=== PATIENT | female | born 1985 | race Caucasian/White ===

== ENCOUNTER 2019-03-08 23:36 | Outpatient (CLI) | payer BC ==
[~2019-03-08] VITALS: Ht 167.6 cm; Wt 88.6 kg
[2019-03-08 23:43] VITALS: Ht 167.6 cm; Wt 88.6 kg
--- NOTE | 2019-03-09 01:21 | PN ---
Triage Information Date/Time Reason for visit: Uterine contractions Weeks of Gestation 34-year-old 5 para 1 at 39 weeks and 6 days of gestation with estimated date of delivery of March 10, 2019 Patient presents with chief complaint of uterine contractions She reports positive movement, denies vaginal bleeding or leaking fluid She is scheduled for induction tomorrow /Para 5 para 1 Diabetes: none Hypertention: none Objective Heart Rate: 140's Heart Rate Comments heart rate tracing category 1 Contractions: >10 Minutes Apart Exam Cervix closed/posterior per nurse Disposition: Discharge Assessment/Plan kick count instructions were given Labor precautions were given Patient to return tomorrow for induction of labor JESSE HERRERA MD Mar 09, 2019 01:21
--- NOTE | 2019-03-09 03:22 | TRIAGE ---
OB Triage Datetime Report Generated by CPN: 03/09/2019 03:22 Datetime: 03/09/2019 00:45 Stage of : OB Triage Labor Evaluation Frequency: 6-8 Monitor Mode: External Duration (sec)2399: 50-80 Quality: Mild Pattern: Normal: <= 5 Contractions in 10 Minutes Resting Tone [place]: Relaxed Heart Rate FHR Baseline Rate: 125 Monitor Mode: External US Variability: Moderate 6-25 bpm Accelerations: 15X15 Decelerations: None Category: Category I Pain Assessment Pain Scale: 3 Pain Presence: Intermittent Pain Type: Cramping Pain Location: Abdomen Pain Goal: 3 Pain Relief Measures: Comfort Measures Datetime: 03/08/2019 23:47 Time of Arrival: 03/08/2019 23:24 EGA: 39.5 Arrived By: Wheelchair Arrived From: Home Chief Complaint: CONTRACTIONS SINCE 2229, UNSURE SROM, SPOTTING Movement: Present Contractions: Irregular Time Contractions Began: 03/08/2019 22:30 Rupture of Membranes: Unsure Vaginal Bleeding: None Vaginal Discharge: Denies Patient Complaints: None Time Provider Notified: 03/09/2019 00:45 Provider Notified: REICHE Initial Plan: EFM, ASSESSMENT, CALL MD FOR ORDERS Datetime: 03/08/2019 23:45 Assessment Type: Triage Maternal Assessment Level of Consciousness: Keenly Alert, Responsive DTR's/Clonus: DTRs 2+; No Clonus Headache: Denies Blurred Vision: No Respiratory Effort: Unlabored; Regular Rhythm; Equal Expansion Breath Sounds, Left: Clear and Equal Breath Sounds, Right: Clear and Equal Nausea/Vomiting: Denies RUQ Epigastric Pain: Denies Lower Extremities Edema: None Upper Extremities Edema: None Facial Edema: None Fall Risk Assessment History of Falling: (0) No Secondary Diagnosis: (0) No Ambulatory Aid: (0) Bedrest/Nurse Assist IV Therapy: (0) No Gait: (0) Normal/Bedrest/Immobile Mental Status: (0) Oriented to Own Ability Fall Score: 0 Fall Risk Score Definition: No Risk: No action required
== END 2019-03-09 00:55 | disposition home or self-care (01) ==
LOC: OBT 23:36 → L-D 23:37 → OBT 03-09 00:55
PROVIDERS: ATTEND Obstetrics & Gynecology
DX: O62.9 Abnormality of forces of labor, unspecified (principal); Z3A.39 39 weeks gestation of pregnancy
CPT/HCPCS: G0463

== ENCOUNTER 2019-03-09 14:46 | Inpatient (IN) | payer BC ==
[~2019-03-09] VITALS: Ht 168.9 cm; Wt 88.2 kg
[2019-03-09] MEDS ORDERED: LACTATED RINGER'S 1,000 ML IV PRN (15:19)
[2019-03-09] MEDS ORDERED: LACTATED RINGER'S 1,000 ML IV SCH (15:19)
[2019-03-09] MEDS ORDERED: MINERAL OIL LIGHT 10 ML VIAL TOP PRN (15:30)
[2019-03-09] MEDS ORDERED: OXYTOCIN 30 UNITS/LR 500 ML IV SCH ×3 (15:30→21:00)
[2019-03-09] MEDS ORDERED: CARBOPROST 250 MCG INJ IM PRN (15:30)
[2019-03-09] MEDS ORDERED: METHYLERGONOVINE 0.2 MG INJ IM PRN (15:30)
[2019-03-09] MEDS ORDERED: LIDOCAINE 1% (MPF) 30 ML INJ INJ PRN (15:30)
[2019-03-09] MEDS ORDERED: BUTORPHANOL 2 MG INJ IV PRN ×2 (15:30)
[2019-03-09] MEDS ORDERED: OXYCODONE/ASPIRIN (4.88/325) TAB PO PRN (15:30)
[2019-03-09] MEDS ORDERED: IBUPROFEN 600 MG TAB PO PRN (15:30)
[2019-03-09] MEDS ORDERED: MISOPROSTOL 200 MCG TAB PR PRN (15:30)
[2019-03-09] MEDS ORDERED: OXYTOCIN 30 UNITS/LR 500 ML IV PRN (15:30)
--- NOTE | 2019-03-09 16:14 | PREAC ---
Date/Time of Note Date/Time of Note DATE: 03/09/19 TIME: 16:13 Anesthesia Eval and Record Evaluation Time Pre-Procedure Interview DATE: 03/09/19 TIME: 16:13 Age 34 Sex female NPO: 8 hrs Preoperative diagnosis iup at 40 weeks Planned procedure labor epidural Past Medical History Past Medical History: None Surgery & Anesthesia Issues No known issue Meds Anticoagulation: No Beta Sarai within 24 hr: No Reason Beta Sarai not given: Pt. not on B-Sarai No Active Prescriptions or Reported Meds Current Medications Lactated Ringer's 1,000 ml @ 125 mls/hr Q8H IV ; Start 03/09/19 at 15:19 Butorphanol Tartrate (Stadol) 1 mg Q2H PRN IV .PAIN SCALE 1-5; Start 03/09/19 at 15:30 Butorphanol Tartrate (Stadol) 2 mg Q2H PRN IV .PAIN SCALE 6-10; Start 03/09/19 at 15:30 Lidocaine (Xylocaine 1% (Mpf)) 30 ml ONCE PRN INJ .EPISIOTOMY; Start 03/09/19 at 15:30 Oxytocin/Lactated Ringer's 500 ml @ 500 mls/hr ONCE POST IV ; Start 03/09/19 at 15:30 Oxytocin/Lactated Ringer's 500 ml @ 125 mls/hr POST IV ; Start 03/09/19 at 15:30 Ibuprofen (Motrin) 600 mg ONCE PRN PO .PAIN 1-5; Start 03/09/19 at 15:30 Oxycodone/Aspirin (Percodan) 2 tab ONCE PRN PO .PAIN 6-10; Start 03/09/19 at 15:30 Lactated Ringer's 1,000 ml @ 2,000 mls/hr Q30M PRN IV .ANESTHESIA; Start 03/09/19 at 15:19 Oxytocin/Lactated Ringer's 500 ml @ 0 mls/hr ONCE PRN IV .VAGINAL BLEEDING; Start 03/09/19 at 15:30 Methylergonovine Maleate (Methergine) 0.2 mg ONCE PRN IM .VAGINAL BLEEDING; S tart 03/09/19 at 15:30 Carboprost Tromethamine (Hemabate) 250 mcg ONCE PRN IM .VAGINAL BLEEDING; Start 03/09/19 at 15:30 Misoprostol (Cytotec) 1,000 mcg ONCE PRN AL .VAGINAL BLEEDING; Start 03/09/19 at 15:30 Mineral Oil (Muri-Lube) 30 ml ONCE PRN TOP DELIVERY; Start 03/09/19 at 15:30; Stop 03/09/19 at 23:00 Meds reviewed: Yes Allergies Coded Allergies: No Known Allergy (Unverified , 03/08/19) Allergies Reviewed: Yes Labs/Studies Labs Reviewed: Reviewed by anesthesiologist Result Diagram: 03/09/19 1515 Laboratory Tests 03/09/19 15:15 Blood Bank Test 03/09/19 15:15 Blood Type O POSITIVE Rh Immune Globulin Candidate NO test: Positive Pre-procedure Exam Airway: Adequate mouth opening, Adequate thyromental dist Mallampati: Mallampati II Teeth: Normal Lung: Normal Heart: Normal ASA Physical Status ASA physical status: 2 Emergency: None Planned Anesthetic Neuraxial: Epidural Planned Pain Management Parenteral pain med Pre-operative Attestations Prior to commencing anesthesia and surgery, the patient was re-evaluated, there was verification of: *The patient's identity *The results of appropriate recent lab work and preoperative vital signs *The above evaluation not changing prior to induction *Anesthetic plan, risk benefits, alternative and complications discussed with patient/family; questions answered; patient/family understands, accepts and wishes to proceed. CARLOS SCHWAB Mar 09, 2019 16:14
[2019-03-09] MEDS ORDERED: FENTAnyl 2MCG/ML-ROPIV 0.2% 100 ML ONE (16:16)
[2019-03-09] MEDS ORDERED: NALOXONE (0.4 MG/ML) INJ IV PRN (16:30)
[2019-03-09] MEDS ORDERED: DIPHENHYDRAMINE 50 MG INJ IV PRN (16:30)
[2019-03-09] MEDS ORDERED: ONDANSETRON 4 MG INJ IV PRN (16:30)
[2019-03-09] MEDS ORDERED: FENTAnyl 2MCG/ML-ROPIV 0.2% 100 ML BAG EPI SCH (16:30)
--- NOTE | 2019-03-09 22:08 | PAC ---
Date/Time of Note Date/Time of Note DATE: 03/09/19 TIME: 22:08 Post-Anesthesia Notes Post-Anesthesia Note Last documented vital signs 117/78 78 16 98% sat temp 98.3 Activity: WNL Respiratory function: WNL Cardiovascular function: WNL Mental status: Baseline Pain reasonably controlled: Yes Hydration appropriate: Yes Nausea/Vomiting absent: Yes CARLOS SCHWAB Mar 09, 2019 22:08
[2019-03-10] MEDS ORDERED: OXYTOCIN 30 UNITS/LR 500 ML IV SCH (01:39)
[2019-03-10] MEDS: LACTATED RINGER'S 1,000 ML IV* SCH ×2 (01:39→08:51)
--- NOTE | 2019-03-10 01:45 | LDN ---
Date/Time of Note Date/Time of Note DATE: 03/10/19 TIME: 01:43 Delivery Summary of a viable baby boy weighing 7# 2 oz, 19.5" long, and with Apgars of 8/9. Weeks of Gestation 40w Placenta Delivered: Spontaneously Meconium: none Episiotomy: No Perineal laceration: 0 Laceration repair: Small 1st degree right labial laceration repaired with 3-0 chromic. Anesthesia type: Epidural Estimated blood loss: 200 Sponge & Needle done & correct: Yes All needle counts correct: Yes Any foreign bodies felt in the: No (vagina) Infant Delivery Information Sex Infant Sex: male Apgars 1 Minute: 8 5 Minute: 9 Suctioning Nose & mouth suctioned at tyler: Yes Delee suction performed: No Umbilical Cord Umbilical cord with: 3 Vessels Cord presentations: no nuchal cord Cord Blood was obtained: Yes Mother & Baby Disposition Disposition Mom & Baby to Maternity; Good: Yes Baby to NICU: No NEEL MCDONALD MD Mar 10, 2019 01:44
--- NOTE | 2019-03-10 01:48 | HP ---
Date/Time of Note Date/Time of Note DATE: 03/10/19 TIME: 01:45 OB - History Hx of Present Free Text/Dictation 34 y.o. A3 with an IUP at 39w 6d came in with spontaneous rupture of membranes and in labor. Initial exam was 30% 2 cm/-2. Of note this is a surrogate . Estimated Due Date: Mar 10, 2019 : 5 Para: 1 Therapeutic : 3 Care: Good Care Ultrasounds: Normal mid trimester US Obstetrical Complications: None Medical Complications: None Past Family/Social History * Past Medical, Surgical, Family and Obstetric Histories reviewed from chart. Blood Type: O+ Rubella: immune RPR/VDRL: Negative GBS Status: Negative HBsAG: Negative OB Admission Exam Vital Signs Vital Signs 113/63 Physical Exam HEENT: WNL Heart: Rhythm Normal Lungs: Clear Abdomen: WNL Extremities: Normal Reflexes: Normal Cervical Dilatation: 2cm Effacement: 25% Station: -2 Membranes: Ruptured Amniotic Fluid: Clear Heart Rate: 120's Accelerations: Accelerations Present Decelerations: No Decelerations Varibility: Moderate Contractions on Admission: 6-10 Minutes Apart Intensity: Moderate Last 72 hours Lab Results CBC & BMP 03/09/19 15:15 OB Assessment/Plan Reason for admission: active labor, rupture of membranes Plan: Expectant Management Other plan: Augmentation prn. NEEL MCDONALD MD Mar 10, 2019 01:48
[2019-03-10] MEDS ORDERED: OXYTOCIN 30 UNITS/LR 500 ML IV PRN (02:00)
[2019-03-10] MEDS ORDERED: METHYLERGONOVINE 0.2 MG INJ IM PRN (02:00)
[2019-03-10] MEDS ORDERED: CARBOPROST 250 MCG INJ IM PRN (02:00)
[2019-03-10] MEDS ORDERED: BENZOCAINE 20% 56 ML SPRAY TOP PRN (02:00)
[2019-03-10] MEDS ORDERED: LANOLIN HPA 1 PKT TOP PRN (02:00)
[2019-03-10] MEDS ORDERED: MISOPROSTOL 200 MCG TAB PR PRN (02:00)
[2019-03-10 02:40] VITALS: BP 125/60; PULSE 109; RESP 18
[2019-03-10] MEDS: HYDROCODONE/APAP (5/325) TAB PO PRN ×3 (03:48→18:17)
[2019-03-10] MEDS: IBUPROFEN 600 MG TAB PO SCH ×3 (06:30→18:14)
[2019-03-10 09:30] VITALS: BP 109/59; PULSE 67; RESP 16
[2019-03-10 12:00] VITALS: BP 115/63; PULSE 70; RESP 16
[2019-03-10 15:50] VITALS: BP 108/65; PULSE 89; RESP 16
[2019-03-10 20:45] VITALS: BP 105/59; PULSE 104; RESP 20
--- NOTE | 2019-03-10 21:27 | QN ---
Documentation Comment PPD #1 Pt is doing well and is just asking for a sleep aid for tonight. There has been lots of drama re: the actual parents and the lack of proper documents for d/c and extreme erratic behavior of the mother. assessment services manager has been involved due to the surrogacy situation. Pt signed the release papers but apparently the certificate cannot be completed yet. The social media community manager most familiar with these situations will be here tomorrow. T-97.7 BP 108/65 Abdomen soft, NT. Lochia minimal Ext NT, no edema. WBC 23.6 Hgb 10.2 P: Will repeat the CBC in the AM. Hopefully the paperwork can be completed in the AM and the pt can be d/c'ed. NEEL MCDONALD MD Mar 10, 2019 21:27
[2019-03-10] MEDS ORDERED: ZOLPIDEM 5 MG TAB PO PRN (21:30)
[2019-03-11] MEDS: HYDROCODONE/APAP (5/325) TAB PO PRN ×2 (00:16→14:17)
[2019-03-11] MEDS: IBUPROFEN 600 MG TAB PO SCH ×3 (00:16→14:17)
[2019-03-11 00:18] VITALS: BP 116/66; PULSE 92; RESP 20
--- NOTE | 2019-03-11 02:24 | DELSUM ---
Delivery Summary A-C Datetime Report Generated by CPN: 03/11/2019 02:23 DELIVERY PERSONNEL Quantitative Associate: DEDRA, SIVKAUMAR MATERNAL INFORMATION Delivery Anesthesia: Epidural Medications in Delivery: 30 UNITS PITOCIN IN 500ML LR Delivery QBL (ml): 200 Placenta Cultured: No Maternal Complications: None LABOR SUMMARY EDC: 03/10/2019 00:00 No. Babies in Womb: 1 Attempted: No Labor Anesthesia: Epidural LABOR INFORMATION Reason for Induction: Not Applicable Onset of Labor: 03/09/2019 14:00 Complete Dilatation: 03/10/2019 23:58 Group B Beta Strep: Negative Antibiotics # of Doses: 0 Steroids Given: None Reason Steroids Not Administered: Not Applicable MEMBRANES Membranes Rupture Method: Spontaneous Rupture of Membranes: 03/09/2019 14:00 Length of Rupture (hr): 10.93 Amniotic Fluid Color: Clear Amniotic Fluid Amount: Small Amniotic Fluid Odor: None STAGES OF LABOR Stage 1 hr: 33 Stage 1 min: 58 Stage 2 hr: -23 Stage 2 min: -2 Stage 3 hr: 0 Stage 3 min: 9 Total Time in Labor hr: 11 Total Time in Labor min: 5 VAGINAL DELIVERY Episiotomy: None Laceration Extension: First Degree Other Laceration: Labial Laceration Repair: Yes Initial Vag Sponge Count: 10 Final Vag Sponge Count: 10 Initial Vag Sharps Count: 1 Final Vag Sharps Count: 2 Sponge Count Correct: Yes; Vaginal Sweep Performed Sharps Count Correct: Yes BABY A INFORMATION Delivery Date/Time: 03/10/2019 00:56 Method of Delivery: Vaginal Born in Route : No : N/A Forceps: N/A Vacuum Extraction: N/A Shoulder Dystocia : No SHOULDER DYSTOCIA BABY A Infant Delivery Date/Time: 03/10/2019 00:56 PRESENTATION/POSITION BABY A Presentation: Cephalic Cephalic Presentation: Vertex Vertex Position: Left Occipital Anterior Breech Presentation: N/A PLACENTA INFORMATION BABY A Placenta Delivery Time : 03/10/2019 01:05 Placenta Method of Delivery: Spontaneous Placenta Status: Delivered SCORES BABY A Heart Rate 1 min: >100 bpm Resp Effort 1 min: Good Cry Reflex Irritability 1 min: Cough/Sneeze/Pulls Away Muscle Tone 1 min: Active Motion Color 1 min: Blue/Pale Resuscitation Effort 1 min: Tactile Stimulation SCORE 1 MIN: 8 Heart Rate 5 min: >100 bpm Resp Effort 5 min: Good Cry Reflex Irritability 5 min: Cough/Sneeze/Pulls Away Muscle Tone 5 min: Active Motion Color 5 min: Body [place], Extremit Blue Resuscitation Effort 5 min: Tactile Stimulation SCORE 5 MIN: 9 INFORMATION BABY A Gestational Age at Delivery: 40.0 Gestational Status: Full Term- 39- 40.6 Weeks Infant Outcome : Liveborn, with signs of life Condition : Stable Sex: Male IDENTIFICATION/MEDS BABY A ID Band Number: [id number] ID Band Location: Right Leg; Left Arm Sensor Applied: Yes Sensor Number: [id number] Sensor Location : Cord Clamp Vitamin K Given : Deferred by Parents Erythromycin Given: Not Given WEIGHT/LENGTH BABY A Infant Birthweight (gm): 3245 Infant Weight (lb): 7 Weight (oz): 2 Length (in): 19.50 Infant Length (cm): 49.53 CORD INFORMATION BABY A No. Cord Vessels: 3 Nuchal Cord : N/A Cord Blood Taken: Yes Suction: Mouth; Nose ASSESSMENT BABY A Infant Complications: Extended Bradycardi; Multiple Variable Decels Physical Findings at Delivery: Molding of the Head Respirations: Appears Normal Movie Critic/ALS Called : Yes Care By: RT/RN Transferred To: Remains with Mother
[2019-03-11 08:00] VITALS: BP 105/65; PULSE 66; RESP 18
--- NOTE | 2019-03-11 17:01 | PD.PPDC ---
[employer] Discharge Instruction Condition [id number] Patient Condition: [id number] Good Diet [id number] Diet: Tbbbo3g Resume Regular Diet Activity/Restrictions [id number] Activity: [id number] Normal Activity May Shower Swyhc7Se Restrictions: [id number] Minimize Stair-climbing Nothing in the Vagina No Bennett No Tampons, douche Follow-up Follow-up with Physician: 6, Week/Weeks Return to clinic for [id number] CAR SCRUBBER Instructions: Glrof3f Fever greater than 101 Chills Worsening abdominal pain Excessive Vaginal Bleeding [id number] OB Instructions: Vhakl7j Breast Tenderness Depression NEEL MCDONALD MD Mar 11, 2019 17:01
[2019-03-11 17:03] VITALS: BP 124/62; PULSE 91; RESP 18
--- NOTE | 2019-03-11 17:03 | DS ---
Date/Time of Note Date/Time of Note DATE: 03/11/19 TIME: 17:02 Obstetrical Discharge Record Final Diagnosis Final Diagnosis: Term delivered Other Final Diagnosis Surrogate Vaginal Delivery Obstetrical Delivery: Spontaneous, Laceration, Repaired Complications Augmentation: Yes Induction: No Condition on Discharge Physical Assessment Last Vitals: T=97.6 BP 105/65 Voiding: Yes Bowel Movement: Yes Breast: Soft, non-tender Fundus: Firm Calf Tenderness: No Patient Condition: Good NEEL MCDONALD MD Mar 11, 2019 17:03
== END 2019-03-11 17:35 | disposition home or self-care (01) | DRG 807 ==
LOC: OBT 14:46 → L-D 14:46 → OBT 14:55 → MS1 03-10 02:22
PROVIDERS: ADMIT Obstetrics & Gynecology; ATTEND Obstetrics & Gynecology
PROC: 10E0XZZ Delivery of Products of Conception, External Approach (ICD-10-PCS; principal; 2019-03-10)
PROC: 0HQ9XZZ Repair Perineum Skin, External Approach (ICD-10-PCS; 2019-03-10)
DX: O70.0 First degree perineal laceration during delivery (principal); Z37.0 Single live birth; Z3A.40 40 weeks gestation of pregnancy; Z33.3 Pregnant state, gestational carrier
CPT/HCPCS: 62322; 81003; 85025; 85610; 85730; 86592; 86850; 86900; 86901; 87086; 87340; 99464; G0463; J2590; J3010; J7120